=== PATIENT | female | born 1990 | race Caucasian/White ===

== ENCOUNTER 2022-07-07 22:10 | Emergency (ER) | payer BC ==
[2022-07-07] MEDS ORDERED: Ondansetron ODT 4 MG TAB ONE (23:22)
[2022-07-07 23:51] LABS: Mean Corpuscular HGB CONC 33.9 g/dL (32.0-36.0); Mean Corpuscular Hemoglobin 29.7 pg (27.0-33.0); Mean Corpuscular Volume 87.6 fl (81.6-98.3); Platelet Count 259 10x3/uL (150-450); RBC Distribution Width 11.7 % (11.5-14.5); Red Blood Cell (RBC) Count 4.37 10x6/uL (3.90-5.03); White Blood Cell (WBC) Count 12.8 10x3/uL (3.5-10.5)
[2022-07-07 23:54] LABS: MDiff Complete? YES; Platelet Morphology Comment Appears Adequate
[2022-07-07 23:55] LABS: BHCG - Serum Negative (NEGATIVE); Pregs Control Background? CLEAR/WHITE (CLR/WHITE); Pregs Control Bar Appear? YES (CONTROL BAR)
[2022-07-08 00:02] LABS: ALT (SGPT) 12 U/L (8-55); AST (SGOT) 14 U/L (5-34); Albumin 4.3 g/dL (3.5-5.0); Alkaline Phosphatase 75 U/L (40-110); Anion Gap 14 mmol/L (10-20); BUN (Urea Nitrogen) 10 mg/dL (7.0-18.7); Bilirubin, Total 0.7 mg/dL (0.2-1.2); Calc. Creatinine Clearance 0 mL/min (70-130); Calcium 8.9 mg/dL (7.8-10.44); Carbon Dioxide 24 mmol/L (22-29); Chloride 103 mmol/L (98-107); Estimated GFR 107; Glucose 131 mg/dL (70-105); Lipase 15 U/L (8-78); Protein, Total 7.3 g/dL (6.0-8.3); Sodium 137 mmol/L (136-145)
[2022-07-08 00:31] LABS: Band 5 % (5-11); Eosinophils 1 % (0-10); Lymphocytes 5 % (21-51); Monocytes 3 % (0-10); Neutrophil 86 % (42-75)
[2022-07-08 03:39] LABS: Bilirubin Neg (Negative); Blood, Urine 250 (Negative); Clarity Clear (Clear); Glucose, Urine (Dipstick) Normal (Negative); Ketone, Urine 5 mg/dL (Negative); Leukocyte 25 (Negative); Nitrite Negative (Negative); Protein, Urine (Dipstick) 30 mg/dl (Neg-Trace); Specific Gravity, Urine 1.015 (1.002-1.036)
[2022-07-08 03:47] LABS: Bacteria/HPF 1+ HPF (None Seen); Mucous/LPF 1+ LPF (<2+)
[2022-07-08] MEDS ORDERED: Ondansetron PF 4 MG/2 ML Vial ONE (03:59)
[2022-07-08] MEDS ORDERED: Ketorolac Tromethamine 30 MG/ML VIAL ONE (05:06)
[2022-07-08] MEDS ORDERED: HYDROmorphone 0.5 MG/0.5 ML SYRINGE ONE ×2 (05:15)
[2022-07-08] MEDS ORDERED: Metoclopramide HCl 10 MG/2 ML VIAL ONE (06:21)
== END 2022-07-08 07:58 | disposition home or self-care (01) ==
LOC: CSHERS 22:10
DX: K80.20 Calculus of gallbladder without cholecystitis without obstruction (principal); R82.71 Bacteriuria
CPT/HCPCS: 36415; 74176; 76705; 80053; 81003; 81015; 83690; 84703; 85025; 87086; 96361; 96374; 96375; J1170; J1885; J2405; J2765; Q0162

== ENCOUNTER 2023-02-27 03:05 | Emergency (ER) | payer OTHER | END 2023-02-27 03:56 | disposition home or self-care (01) | LOC: CSHERS 03:05 | DX: H66.011 Acute suppurative otitis media with spontaneous rupture of ear drum, right ear (principal) | CPT/HCPCS: 99282 ==

== ENCOUNTER 2023-10-08 09:16 | Day surgery (SDC) | payer OTHER ==
[2023-10-08 09:40] VITALS: BMI 40.7
[2023-10-08] MEDS ORDERED: hydrALAZINE 20 MG/ML VIAL SLOW IVP PRN (10:17)
[2023-10-08 10:30] LABS: Bilirubin Neg (Negative); Blood, Urine Negative (Negative); Clarity Clear (Clear); Glucose, Urine (Dipstick) Normal (Negative); Ketone, Urine Negative (Negative); Leukocyte Negative (Negative); Nitrite Negative (Negative); Protein, Urine (Dipstick) 15 mg/dl (Neg-Trace)
[2023-10-08 10:45] LABS: CAUTI Indications for Culture Dysuria,urgency,freq; Mucous/LPF 2+ LPF (<2+); RBC/HPF 0-3 HPF (0-3); Squamous Epithelial 0-3 HPF (0-3); WBC/HPF 0-3 HPF (0-3)
[2023-10-08 10:46] LABS: Bacteria/HPF 1+ HPF (None Seen)
[2023-10-08 10:47] LABS: Urine Culture Reflex No No
== END 2023-10-08 11:40 | disposition home or self-care (01) ==
LOC: CSHLD/OP 09:16
PROVIDERS: ATTEND Family Medicine
DX: O99.891 Other specified diseases and conditions complicating pregnancy (principal); N89.8 Other specified noninflammatory disorders of vagina; O23.593 Infection of other part of genital tract in pregnancy, third trimester; B96.89 Other specified bacterial agents as the cause of diseases classified elsewhere; R35.0 Frequency of micturition; R39.15 Urgency of urination; O99.513 Diseases of the respiratory system complicating pregnancy, third trimester; J45.909 Unspecified asthma, uncomplicated; Z3A.31 31 weeks gestation of pregnancy; Z88.2 Allergy status to sulfonamides; Z79.82 Long term (current) use of aspirin; Z79.51 Long term (current) use of inhaled steroids; Z88.1 Allergy status to other antibiotic agents
CPT/HCPCS: 81001; 87480; 87510; 87660

== ENCOUNTER 2023-12-03 23:07 | Inpatient (IN) | payer OTHER ==
[2023-12-03] MEDS ORDERED: diphenhydrAMINE 50 MG/ML VIAL ONE (23:44)
[2023-12-03] MEDS ORDERED: Prochlorperazine 10 MG/2 ML VIAL ONE (23:45)
[2023-12-03 23:51] LABS: Bilirubin Neg (Negative); Blood, Urine 50 (Negative); Clarity Clear (Clear); Glucose, Urine (Dipstick) Normal (Negative); Ketone, Urine Negative (Negative); Leukocyte Negative (Negative); Nitrite Negative (Negative); Protein, Urine (Dipstick) Negative (Neg-Trace); Urobilinogen Normal mg/dL (Less than 2)
[2023-12-04 00:07] LABS: #Eosinphils 0.2 10x3/uL (0.0-0.5); #Monocytes 0.4 10x3/uL (0.0-1.1); #Neutrophils 4.7 10x3/uL (1.5-8.4); %Basophils 0.4 % (0.0-2.0); %Eosinophils 2.3 % (0.0-6.0); %Lymphocytes 35.6 % (18.0-47.0); %Monocytes 4.6 % (0.0-10.0); %Neutrophils 56.7 % (40.0-75.0); Hemoglobin 14.8 g/dL (12.0-15.5); Mean Corpuscular HGB CONC 34.4 g/dL (32.0-36.0); Mean Corpuscular Hemoglobin 29.7 pg (27.0-33.0); Mean Corpuscular Volume 86.2 fl (81.6-98.3); Mean Platelet Volume 9.9 fl (7.4-10.4); Platelet Count 384 10x3/uL (150-450); RBC Distribution Width 11.8 % (11.5-14.5); Red Blood Cell (RBC) Count 4.99 10x6/uL (3.90-5.03); White Blood Cell (WBC) Count 8.3 10x3/uL (3.5-10.5)
[2023-12-04 00:08] LABS: Bacteria/HPF None Seen HPF (None Seen); CAUTI Indications for Culture Pelvic or flank pain; RBC/HPF 0-3 HPF (0-3); Squamous Epithelial 0-3 HPF (0-3); WBC/HPF 0-3 HPF (0-3)
[2023-12-04 00:09] LABS: Urine Culture Reflex No No
[2023-12-04 00:10] LABS: ALT (SGPT) 16 U/L (8-55); AST (SGOT) 13 U/L (5-34); Albumin 4.1 g/dL (3.5-5.0); Alkaline Phosphatase 102 U/L (40-110); Anion Gap 13 mmol/L (10-20); BUN (Urea Nitrogen) 12 mg/dL (7.0-18.7); Bilirubin, Total 0.3 mg/dL (0.2-1.2); Calc. Creatinine Clearance 0 mL/min (70-130); Carbon Dioxide 22 mmol/L (22-29); Chloride 107 mmol/L (98-107); Estimated GFR 111; Globulin 3.2 g/dL (2.4-3.5); Glucose 95 mg/dL (70-105); Potassium 3.9 mmol/L (3.5-5.1); Protein, Total 7.3 g/dL (6.0-8.3); Sodium 138 mmol/L (136-145)
[2023-12-04 02:09] VITALS: BMI 32.8
[2023-12-04] MEDS: Acetaminophen 500 MG TAB PO SCH (02:11)
[2023-12-04] MEDS ORDERED: Lorazepam 2 MG/ML VIAL SLOW IVP PRN (04:06)
[2023-12-04] MEDS ORDERED: Calcium Gluc 4.6 MEQ/10 ML (100 MG/ML) SLOW IVP PRN (04:06)
[2023-12-04] MEDS: Magnesium Sulfate 20 gm/500 ml 20 GM/500 ML BAG ONE (04:15)
[2023-12-04] MEDS: Lactated Ringer's 1,000 ML IV SCH (05:00)
[2023-12-04] MEDS: NIFEdipine XL 30 MG ER.TAB PO SCH ×2 (05:09→09:32)
[2023-12-04] MEDS: Magnesium Sulfate 20 gm/500 ml 20 GM/500 ML BAG IVPB SCH (13:23)
[2023-12-04] MEDS: Acetaminophen 325 MG TAB PO PRN (15:04)
[2023-12-04 17:32] LABS: Bilirubin Neg (Negative); Blood, Urine 250 (Negative); Glucose, Urine (Dipstick) Normal (Negative); Ketone, Urine Negative (Negative); Leukocyte 25 (Negative); Nitrite Negative (Negative); Protein, Urine (Dipstick) 30 mg/dl (Neg-Trace); Urobilinogen Normal mg/dL (Less than 2)
[2023-12-04 17:40] LABS: Clarity Hazy (Clear)
[2023-12-04 17:41] LABS: Bacteria/HPF Rare-Few HPF (None Seen); CAUTI Indications for Culture Urological Procedure; RBC/HPF Greater than 50 HPF (0-3); Squamous Epithelial 0-3 HPF (0-3); Transitional Epithelial 0-3 HPF (None Seen); WBC/HPF 0-3 HPF (0-3)
[2023-12-04 17:42] LABS: Mucous/LPF Rare LPF (<2+)
[2023-12-04 17:43] LABS: Urine Culture Reflex Yes Yes
[2023-12-05] MEDS: hydrALAZINE 20 MG/ML VIAL SLOW IVP PRN (04:17)
[2023-12-05] MEDS: NIFEdipine XL 30 MG ER.TAB PO SCH ×2 (08:04→19:22)
[2023-12-05] MEDS ORDERED: NIFEdipine XL 30 MG ER.TAB PO SCH (09:00)
[2023-12-05] MEDS ORDERED: HYDROcodone/Acetaminophen 5/325 mg Tablet PO PRN (11:02)
[2023-12-05] MEDS: Ibuprofen 800 MG TAB PO PRN (12:08)
[2023-12-06 11:38] VITALS: BP 136/91; TEMP 98.1
== END 2023-12-06 13:55 | disposition home or self-care (01) | DRG 776 ==
LOC: CSHERS 23:07 → CSHLD/OP 12-04 01:17 → CSHLD 12-04 01:20 → CSHPP 12-05 10:45
PROVIDERS: ADMIT Family Medicine; ATTEND Family Medicine
DX: O10.93 Unspecified pre-existing hypertension complicating the puerperium (principal); Z88.8 Allergy status to other drugs, medicaments and biological substances; Z88.2 Allergy status to sulfonamides; Z91.148 Patient's other noncompliance with medication regimen for other reason; Z79.899 Other long term (current) drug therapy
CPT/HCPCS: 80053; 81001; 83735; 85025; 87086; 96374; 96375; J0360; J0780; J1200; J3475; J7120

== ENCOUNTER 2024-01-23 00:32 | Emergency (ER) | payer OTHER ==
[2024-01-23] MEDS ORDERED: Bacitracin 1 PK ONE (01:18)
== END 2024-01-23 01:30 | disposition home or self-care (01) ==
LOC: CSHERS 00:32
DX: S91.311A Laceration without foreign body, right foot, initial encounter (principal); W27.1XXA Contact with garden tool, initial encounter; Y93.K9 Activity, other involving animal care
CPT/HCPCS: 12004

== ENCOUNTER 2024-01-24 14:13 | Emergency (ER) | payer OTHER ==
[2024-01-24] MEDS ORDERED: Ondansetron PF 4 MG/2 ML Vial ONE (14:49)
[2024-01-24 14:55] LABS: #Basophils 0.02 10x3/uL (0.0-0.2); #Eosinphils 0.05 10x3/uL (0.0-0.5); #Monocytes 0.46 10x3/uL (0.0-1.1); #Neutrophils 5.84 10x3/uL (1.5-8.4); %Basophils 0.3 % (0.0-2.0); %Eosinophils 0.7 % (0.0-6.0); %Lymphocytes 12.7 % (18.0-47.0); %Monocytes 6.3 % (0.0-10.0); %Neutrophils 79.6 % (40.0-75.0); Hematocrit 35.8 % (34.9-44.5); Hemoglobin 12.3 g/dL (12.0-15.5); Mean Corpuscular HGB CONC 34.4 g/dL (32.0-36.0); Mean Corpuscular Hemoglobin 29.8 pg (27.0-33.0); Mean Corpuscular Volume 86.7 fl (81.6-98.3); Mean Platelet Volume 9.8 fl (7.4-10.4); Platelet Count 229 10x3/uL (150-450); RBC Distribution Width 12.2 % (11.5-14.5); Red Blood Cell (RBC) Count 4.13 10x6/uL (3.90-5.03); White Blood Cell (WBC) Count 7.3 10x3/uL (3.5-10.5)
[2024-01-24 15:04] LABS: BHCG - Serum Negative (NEGATIVE); Pregs Control Background? CLEAR/WHITE (CLR/WHITE); Pregs Control Bar Appear? YES (CONTROL BAR)
[2024-01-24 15:20] LABS: ALT (SGPT) 35 U/L (8-55); AST (SGOT) 63 U/L (5-34); Albumin 3.6 g/dL (3.5-5.0); Alkaline Phosphatase 100 U/L (40-110); Anion Gap 13 mmol/L (10-20); BUN (Urea Nitrogen) 11 mg/dL (7.0-18.7); Bilirubin, Total 0.3 mg/dL (0.2-1.2); Calc. Creatinine Clearance 0 mL/min (70-130); Calcium 8.7 mg/dL (7.8-10.44); Carbon Dioxide 22 mmol/L (22-29); Chloride 108 mmol/L (98-107); Estimated GFR 117; Globulin 3.1 g/dL (2.4-3.5); Glucose 142 mg/dL (70-105); Lipase 24 U/L (8-78); Potassium 3.8 mmol/L (3.5-5.1); Protein, Total 6.7 g/dL (6.0-8.3); Sodium 139 mmol/L (136-145)
[2024-01-24 16:17] LABS: Bilirubin Neg (Negative); Blood, Urine Negative (Negative); Clarity Clear (Clear); Glucose, Urine (Dipstick) Normal (Negative); Ketone, Urine 5 mg/dL (Negative); Leukocyte 100 (Negative); Nitrite Negative (Negative); Protein, Urine (Dipstick) 15 mg/dl (Neg-Trace)
[2024-01-24 16:24] LABS: Bacteria/HPF 3+ HPF (None Seen); CAUTI Indications for Culture Pelvic or flank pain; Mucous/LPF 3+ LPF (<2+); RBC/HPF None Seen HPF (0-3)
[2024-01-24 16:25] LABS: Urine Culture Reflex No No
== END 2024-01-24 17:14 | disposition home or self-care (01) ==
LOC: CSHERS 14:13
DX: N39.0 Urinary tract infection, site not specified (principal); I10 Essential (primary) hypertension; Z79.899 Other long term (current) drug therapy
CPT/HCPCS: 74176; 80053; 81001; 83690; 84703; 85025; 93005; 96374; J2405

== ENCOUNTER 2024-05-05 10:39 | Emergency (ER) | payer OTHER ==
[2024-05-05] MEDS ORDERED: Lidocaine 1% w/Epinephrine 1:200K 30 ML VIAL ONE (11:25)
== END 2024-05-05 12:15 | disposition home or self-care (01) ==
LOC: CSHERS 10:39
DX: L72.3 Sebaceous cyst (principal); I10 Essential (primary) hypertension
CPT/HCPCS: 10060